=== PATIENT | female | born 1945 | race Two or more races ===

== ENCOUNTER 2017-01-06 14:55 | Outpatient (CLI) | payer OTHER | END 2017-01-06 15:12 | disposition home or self-care (01) | LOC: RAD 501 14:55 | DX: M25.511 Pain in right shoulder (principal); M25.512 Pain in left shoulder ==

== ENCOUNTER → 2017-04-07 | Outpatient (CLI) | payer OTHER | END | disposition home or self-care (01) | LOC: LAB 08:48 | DX: E55.9 Vitamin D deficiency, unspecified (principal); M85.9 Disorder of bone density and structure, unspecified; E88.89 Other specified metabolic disorders; E56.1 Deficiency of vitamin K; M81.8 Other osteoporosis without current pathological fracture; E03.8 Other specified hypothyroidism; E83.42 Hypomagnesemia ==

== ENCOUNTER 2017-10-15 09:25 | Outpatient (CLI) | payer OTHER | END 2017-10-15 10:40 | disposition home or self-care (01) | LOC: RAD 501 09:25 | DX: M79.601 Pain in right arm (principal); M25.511 Pain in right shoulder ==

== ENCOUNTER 2017-10-29 06:08 | Outpatient (CLI) | payer OTHER ==
[2017-11-03] MEDS ORDERED: LIPITOR PO (13:13)
[2017-11-03] MEDS ORDERED: SYNTH PO (13:27)
== END 2017-10-29 06:33 | disposition home or self-care (01) ==
LOC: RAD 06:08 → LAB 06:08
DX: D64.89 Other specified anemias (principal); E88.89 Other specified metabolic disorders; D68.8 Other specified coagulation defects; N39.0 Urinary tract infection, site not specified; A49.02 Methicillin resistant Staphylococcus aureus infection, unspecified site; Z76.89 Persons encountering health services in other specified circumstances

== ENCOUNTER → 2017-11-07 | Day surgery (SDC) | payer OTHER ==
[~2017-11-07] MED LIST: LIPITOR PO; SYNTH PO
== END | disposition home or self-care (01) ==
LOC: ADM 11-03 12:15 → CIR.AMB 05:40
DX: M75.111 Incomplete rotator cuff tear or rupture of right shoulder, not specified as traumatic (principal); M19.011 Primary osteoarthritis, right shoulder; M24.511 Contracture, right shoulder; M65.811 Other synovitis and tenosynovitis, right shoulder; M75.21 Bicipital tendinitis, right shoulder

== ENCOUNTER → 2018-04-09 | Outpatient (CLI) | payer OTHER | END | disposition home or self-care (01) | LOC: RAD 501 08:50 | DX: M54.5 Low back pain (principal); Z96.643 Presence of artificial hip joint, bilateral ==